=== PATIENT | male | born 1965 | race Caucasian/White ===

== ENCOUNTER 2019-07-09 04:24 | Inpatient (IN) | payer SELFPAY ==
[2019-07-09] VITALS (10 sets, daily range): BP systolic 108–130; BP diastolic 78–100
[~2019-07-09] VITALS: Ht 182.9 cm; Wt 86.9 kg
[~2019-07-09 04:24] MED LIST: DIGOXIN250 MCG PO; HALOG30 GM; XARELTO10 MG PO
[2019-07-09] MEDS ORDERED: SODIUM CHLORIDE 0.9% 1000ML 1,000 ML IV STA (04:48)
[2019-07-09] MEDS ORDERED: AMIODARONE HCL 150MG 100 ML ONE (04:50)
[2019-07-09] MEDS ORDERED: AMIODARONE HCL 150MG 100 ML IV STA (04:56)
[2019-07-09] MEDS ORDERED: ASPIRIN 81 MG CHEW TAB PO ONE ×2 (05:00→05:45)
[2019-07-09 05:10] LABS: HEMATOCRIT 48.2 % (38.2-49.6); HEMOGLOBIN 16.1 g/dL (14.0-18.0); LYMPHOCYTES % 24.6 % (18.0-39.1); MEAN CORPUSCULAR HEMOGLOBIN 31.6 pg (28-32); MEAN CORPUSCULAR HGB CONC 33.4 g/dL (31-35); MEAN CORPUSCULAR VOLUME 94.7 fL (81-99); NEUTROPHILS % 61.1 % (38.7-80.0); PLATELET COUNT 209 x10e3/uL (140-360); RED BLOOD COUNT 5.09 x10e6/uL (4.3-5.7); RED CELL DISTRIBUTION WIDTH 14.4 % (11.7-14.4)
[2019-07-09 05:11] LABS: BASOPHILS % 0.4 % (0.0-1.0); EOSINOPHILS # (AUTO) 0.1 (0.0-0.4); EOSINOPHILS % 1.1 % (0.0-6.0); LYMPHOCYTES # (AUTO) 2.2 (1.0-3.2); MONOCYTES # (AUTO) 1.1 (0.2-0.8); MONOCYTES % 12.4 % (4.4-11.3); NEUTROPHILS # (AUTO) 5.5 (2.1-6.9)
[2019-07-09 05:28] LABS: ALANINE AMINOTRANSFERASE 34 IU/L (0-55); ALBUMIN 3.6 g/dL (3.5-5.0); ALBUMIN/GLOBULIN RATIO 1.1 (0.8-2.0); ALKALINE PHOSPHATASE 91 IU/L (40-150); ANION GAP 14.5 mmol/L (8-16); BLOOD UREA NITROGEN 19 mg/dL (7-26); BUN/CREATININE RATIO 19 (6-25); CALCIUM 10.2 mg/dL (8.4-10.2); CARBON DIOXIDE 24 mmol/L (22-29); CHLORIDE 103 mmol/L (98-107); CREATINE KINASE 55 IU/L (30-200); CREATININE, SERUM 0.99 mg/dL (0.72-1.25); EST GLOMERULAR FILTRATION RATE > 60 ML/MIN (60-); GLUCOSE 108 mg/dL (74-118); MAGNESIUM 1.9 MG/DL (1.3-2.1); POTASSIUM 4.5 mmol/L (3.5-5.1); SODIUM 137 mmol/L (136-145)
--- NOTE | 2019-07-09 05:31 | Diagnostic Imaging Report ---
Examination: Single AP view of the chest. COMPARISON: None. INDICATION: Atrial fibrillation DISCUSSION: The lungs are well-inflated. No focal airspace consolidation, pleural effusion, or pneumothorax. Cardiomediastinal silhouette is markedly enlarged with prominence of the central pulmonary vasculature. No acute osseous abnormality. IMPRESSION: 1. Marked enlargement of the cardiomediastinal silhouette with pulmonary venous congestion. Signed by: Dr. Abdirashid Lozada M.D. on 07/09/2019 5:28 AM
[2019-07-09] MEDS ORDERED: AMIODARONE 900MG 500 ML IV SCH (06:00)
--- OUTSIDE RECORDS SUMMARY | 2019-07-09 06:22 | XMS REPORT ---
Author Author [facility] Address Unknown Phone Unavailable Care Team Providers Care Substation Inspector Name Role Phone Mani AMATO Unavailable Unavailable Problems This patient has no known problems. Allergies, Adverse Reactions, Alerts This patient has no known allergies or adverse reactions. Medications This patient has no known medications. Results Test Description Test Time Test Comments Text Results Atomic Results Result Comments CHEST SINGLE (PORTABLE) 2019-07-09 05:26:00 [place] [id number] Patient Name: BEATRIZ CARRANZA MR #: [id number] : 1965 Age/Sex: 53/M Req #: [id number] Adm Physician: Ordered by: ROSSI AMATO MD Report #: [id number] Location: ER Room/Bed: Procedure: [id number] DX/CHEST SINGLE (PORTABLE) Exam Date: 07/09/19 Exam Time: 0512 REPORT STATUS: Signed Examination: Single AP view of the chest. COMPARIS ON: None. INDICATION: Atrial fibrillation DISCUSSION: The lungs are well-inflated. No focal airspace consolidation, pleural effusion, or pneumothorax. Cardiomediastinal silhouette is markedly enlarged with prominence of the central pulmonary vasculature. No acute osseous abnormality. IMPRESSION: 1. Marked enlargement of the cardiomediastinal silhouette with pulmonary venous congestion. Signed by: Dr. Vane Jimenez M.D. on 07/09/2019 5:28 AM Dictated By: VANE JIMENEZ MD 7 Transcribed By: MILA on 07/09/19527 COPY TO: ROSSI AMATO MD
[2019-07-09 06:35] LABS: AMPHETAMINES SCREEN,URINE NEGATIVE (NEGATIVE); BENZODIAZEPINES SCREEN,URINE NEGATIVE (NEGATIVE); PHENCYCLIDINE SCREEN,URINE NEGATIVE (NEGATIVE)
--- NOTE | 2019-07-09 06:50 | NUR ---
BEDSIDE REPORT FROM MANDARIN TUTOR
--- NOTE | 2019-07-09 07:00 | NUR ---
PATIENT AWAKE. A/O X 3. BILATERAL IV'S PATENT. PATIENT DENIES ANY CHEST PAIN OR SHORTNESS OF BREATH UNLESS HE IS UP AMBULATING. RHYTHM CHANGING FROM AFIB >100'S TO AFLUTTER. AMIODARONE INFUSING AT 33.3 (1MG/MIN)
--- NOTE | 2019-07-09 07:15 | NUR ---
PATIENT PLACED ON WAFFLE, GIVEN KELENX FOR SINUSES
[2019-07-09] MEDS: FUROSEMIDE INJ 10 MG/ML 4 ML VIAL IV SCH (07:27)
[2019-07-09 07:54] LABS: THYROID STIMULATING HORMONE 3.301 uIU/mL (0.350-4.940)
--- NOTE | 2019-07-09 08:27 | NUR ---
PATIENT SITTING UP EATING BREAKFAST
[2019-07-09] MEDS ORDERED: ASPIR 8181 MG PO (08:34)
--- NOTE | 2019-07-09 08:44 | NUR ---
SPOKE WITH Jessica SONG (EUGENIA BURNETT). SHE WILL BE IN SHORTLY TO EVALUATE PATIENT
--- NOTE | 2019-07-09 09:05 | NUR ---
Domingo LACKEY AT BEDSIDE EVALUATING PATIENT
[2019-07-09] MEDS: ASPIRIN 81 MG CHEW TAB PO SCH (09:17)
[2019-07-09] MEDS: ENOXAPARIN SODIUM INJ 100 MG/ML SYR SC SCH ×2 (09:17→21:30)
[2019-07-09] MEDS: DIGOXIN 0.25 MG TAB PO SCH (09:22)
--- NOTE | 2019-07-09 10:20 | NUR ---
EUGENIA BURNETT N.P. AT BEDSIDE EVALUATING PATIENT
[2019-07-09] MEDS ORDERED: LEVALBUTEROL HCL SOLN NEBU 0.63 MG/3 ML NEB INH PRN (10:30)
[2019-07-09] MEDS ORDERED: METOPROLOL TARTRATE INJ 1 MG/ML VIAL IV PRN (10:30)
[2019-07-09] MEDS ORDERED: IPRATROPIUM BROMIDE 0.02% 2.5 ML NEB NEB PRN (10:30)
[2019-07-09] MEDS ORDERED: ACETAMINOPHEN 325 MG TAB PO PRN (10:45)
[2019-07-09] MEDS ORDERED: ONDANSETRON HCL INJ 2MG/ML 2ML 2 MG/ML VIAL IV PRN (10:45)
--- NOTE | 2019-07-09 10:48 | NUR ---
PATIENT UP TO BATHROOM FOR BOWEL MOVEMENT, BECAME HYPOTENSIVE 83/66. PLACED BACK INTO BED
--- NOTE | 2019-07-09 10:49 | NUR ---
PATIENT FINANCIAL REP AT BEDSIDE OBTAINING 2ND SET OF CARDIAC ENZYMES
[2019-07-09] MEDS ORDERED: LORAZEPAM INJ 2 MG/ML VIAL IV ONE (11:00)
--- NOTE | 2019-07-09 11:04 | NUR ---
PATIENT GIVEN ATIVAN 1 MG IV FOR ANXIETY, RECEIVING BREATHING TX. GIRLFRIEND AT BEDSIDE
--- NOTE | 2019-07-09 11:48 | NUR ---
REPORT CLERK AT BEDSIDE
[2019-07-09] MEDS: AMIODARONE 900MG 500 ML IV SCH (11:50)
--- NOTE | 2019-07-09 12:09 | NUR ---
SPOKE WITH [employer]. HE WILL CALL DR. Domingo LACKEY WITH RESULTS
--- NOTE | 2019-07-09 12:22 | Consultation ---
DATE OF CONSULTATION: Cardiology Consult CHIEF COMPLAINT: The patient is a 53-year-old with atrial fibrillation. HISTORY OF PRESENT ILLNESS: The patient is a 53-year-old, who came to the emergency room with his heart racing. The patient was noted to be in atrial fibrillation. The patient was having some shortness of breath and palpitations. No chest pain. No nausea. No vomiting. No abdominal pain. PAST MEDICAL HISTORY: Significant for: 1. Recurrent atrial fibrillation in the past. 2. History of cardioversion in the past. MEDICATIONS: At home include: 1. Aspirin. 2. Metoprolol. 3. Digoxin. SOCIAL HISTORY: The patient has been a smoker in the past. The patient does not drink. FAMILY HISTORY: There is a family history of hypertension. PHYSICAL EXAMINATION: GENERAL: The patient is well-developed, well-nourished male, in no obvious distress. VITAL SIGNS: Included a temperature of 98.8, blood pressure of 100/60, pulse was 120. HEAD, EARS, EYES, NOSE, AND THROAT: The patient's cranium was normocephalic and atraumatic. Extraocular muscles were intact. Sclerae were anicteric. Pupils were equal, round, and reactive to light. There is no pallor or cyanosis of the oral mucosa. There is no erythema or edema of the throat. NECK: Supple. No jugular venous distention. CHEST: Clear to auscultation and percussion. CARDIAC: Demonstrated an irregularly irregular rhythm with a short 2/6 systolic murmur. ABDOMEN: Demonstrated good bowel sounds. No tenderness. No masses. EXTREMITIES: There was no clubbing, no cyanosis, and no edema. NEUROLOGIC: The patient was alert and oriented x3. Cranial nerves II through XII are intact. Motor strength was +5/+5 in all limbs. IMAGING DATA: The patient's EKG demonstrated atrial fibrillation with a rapid ventricular response. IMPRESSION: The patient is a 53-year-old with paroxysmal atrial fibrillation. RECOMMENDATIONS: As follows: 1. The patient will need to be placed on IV amiodarone. 2. The patient has been placed on Lovenox temporarily for anticoagulation. 3. The patient reports that he has had bleeding and bad reactions to anticoagulants in the past and he is not a candidate for the Xarelto or any of the novel anticoagulants. 4. The patient has had multiple cardioversions in the past for paroxysmal atrial fibrillation. I have discussed the option of an ablation with the patient. The patient does not want ablation at this time due to the cost. 5. An echocardiogram with Doppler has been ordered. Abdirashid Abreu MD DSH/MODL /[id number] cc: Luis A Godwin MD
[2019-07-09 12:28] LABS: CREATINE KINASE MB 1.9 ng/mL (0-5.0)
--- NOTE | 2019-07-09 16:30 | NUR ---
Pt received from ER via stretcher. Alert and oriented x4, on 3L NC, and Amiodarone drip at 16ml per hour with HR between 120 to 130s. Oriented to staff and surroundings. Encouraged to press call polanco if help needed. Pt verbalized understanding of teaching. Call polanco within reach. Will monitor
[2019-07-09] MEDS: FAMOTIDINE 20 MG TAB PO SCH (18:46)
[2019-07-09] MEDS ORDERED: FUROSEMIDE INJ 10 MG/ML 4 ML VIAL IV ONE (19:00)
--- NOTE | 2019-07-09 19:00 | NUR ---
Report received. Assumed care. Assessment done. See interventions. Chuy @ 16ml/hr.
--- NOTE | 2019-07-09 19:09 | NUR ---
All meds given as ordered. Handoff given to oncoming shift
[2019-07-09 19:55] LABS: CREATINE KINASE MB 1.7 ng/mL (0-5.0)
[2019-07-10] VITALS (13 sets, daily range): BP systolic 95–144; BP diastolic 66–119
[2019-07-10 04:18] LABS: BASOPHILS # (AUTO) 0.1 (0.0-0.1); BASOPHILS % 0.5 % (0.0-1.0); EOSINOPHILS # (AUTO) 0.1 (0.0-0.4); EOSINOPHILS % 0.5 % (0.0-6.0); HEMOGLOBIN 15.3 g/dL (14.0-18.0); LYMPHOCYTES # (AUTO) 2.3 (1.0-3.2); MEAN CORPUSCULAR HEMOGLOBIN 31.5 pg (28-32); MEAN CORPUSCULAR VOLUME 92.6 fL (81-99); MONOCYTES # (AUTO) 1.2 (0.2-0.8); MONOCYTES % 11.5 % (4.4-11.3); NEUTROPHILS # (AUTO) 6.5 (2.1-6.9); PLATELET COUNT 168 x10e3/uL (140-360); RED BLOOD COUNT 4.86 x10e6/uL (4.3-5.7); RED CELL DISTRIBUTION WIDTH 14.3 % (11.7-14.4)
[2019-07-10 04:41] LABS: CREATINE KINASE MB 1.4 ng/mL (0-5.0)
[2019-07-10 04:56] LABS: ANION GAP 14.2 mmol/L (8-16); BLOOD UREA NITROGEN 26 mg/dL (7-26); BUN/CREATININE RATIO 21 (6-25); CALCIUM 8.9 mg/dL (8.4-10.2); CARBON DIOXIDE 21 mmol/L (22-29); CHLORIDE 103 mmol/L (98-107); CHOL/HDL RATIO 2.9 (3.9-4.7); CHOLESTEROL 103 MD/DL (0-199); CREATININE, SERUM 1.21 mg/dL (0.72-1.25); EST GLOMERULAR FILTRATION RATE > 60 ML/MIN (60-); GLUCOSE 109 mg/dL (74-118); HDL CHOLESTEROL 36 MG/DL (40-60); LDL CHOLESTEROL 57 MG/DL (60-130); POTASSIUM 4.2 mmol/L (3.5-5.1); SODIUM 134 mmol/L (136-145); TRIGLYCERIDES 50 MG/DL (0-149)
[2019-07-10 05:09] LABS: ALBUMIN 3.3 g/dL (3.5-5.0); BILIRUBIN,DIRECT 0.9 mg/dL (0.0-0.5)
[2019-07-10] MEDS: FAMOTIDINE 20 MG TAB PO SCH (07:30)
[2019-07-10] MEDS: AMIODARONE 900MG 500 ML IV SCH (08:10)
[2019-07-10] MEDS: ASPIRIN 81 MG CHEW TAB PO SCH (08:41)
[2019-07-10] MEDS: DIGOXIN 0.25 MG TAB PO SCH (08:41)
[2019-07-10] MEDS: FUROSEMIDE INJ 10 MG/ML 4 ML VIAL IV SCH (08:41)
[2019-07-10] MEDS: ENOXAPARIN SODIUM INJ 100 MG/ML SYR SC SCH (08:41)
[2019-07-10] MEDS ORDERED: AMIODARONE HCL 200 MG TAB PO SCH (09:00)
[2019-07-10] MEDS ORDERED: METOPROLOL TARTRATE 25 MG TAB PO SCH (09:00)
--- NOTE | 2019-07-10 09:00 | NUR ---
Dr. Domingo Abreu here to see patient and written prescriptions placed on chart
--- NOTE | 2019-07-10 09:36 | NUR ---
Christo Gruber called for consultation on this patient and I spoke to
--- NOTE | 2019-07-10 10:30 | NUR ---
Patient refusing Life Vest at this time and wants to go leave AMA. AMA form signed and risks verbalized to patient and he verbalized understanding. Written prescriptions given to patient and instructed for F/U visit with Dr. Abreu in one week as his request.
--- NOTE | 2019-07-10 11:40 | NUR ---
Patient discharged at 11:30 and taken via wheelchair to [facility]. Patient denies any chest pain or discomfort anywhere. Bilateral IV's removed and tolerated well. Says his ride will be arriving shortly. AMA form and copy of D/C prescriptions placed on chart.
[2019-07-10] MEDS ORDERED: WARFARIN SOD 2.5 MG TAB PO SCH (17:00)
[2019-07-11] MEDS ORDERED: DIGOXIN 0.125 MG TAB PO SCH (09:00)
== END 2019-07-10 11:30 | disposition left against medical advice (07) | DRG 308 ==
LOC: ER 04:24 → ERHOLD 06:19 → ICU 16:00
PROVIDERS: ADMIT Internal Medicine; ATTEND Internal Medicine
DX: I48.0 Paroxysmal atrial fibrillation (principal); I50.23 Acute on chronic systolic (congestive) heart failure; Z72.0 Tobacco use; Z80.9 Family history of malignant neoplasm, unspecified; Z79.82 Long term (current) use of aspirin
CPT/HCPCS: 36415; 71045; 80048; 80053; 80061; 80076; 80162; 80307; 82550; 82553; 83735; 83880; 84443; 84484; 85025; 93005; 93306; 94640; 99284; J1650; J1940; J2060; J7030